=== PATIENT | female | born 1985 | race Caucasian/White ===

== ENCOUNTER 2020-11-15 04:18 | Emergency (ER) | payer SELFPAY ==
[~2020-11-15] VITALS: Ht 162.6 cm; Wt 67.0 kg
[2020-11-15 05:58] LABS: COVID AG,FIA SOURCE NASOPHARYNGEAL
[2020-11-15 06:33] LABS: RAPID GROUP A STREP NEGATIVE (NEGATIVE)
[2020-11-15 06:53] VITALS: BP 118/88
[2020-11-15] MEDS ORDERED: ACETAMINOPHEN 500 MG TABLET PO ONE (07:00)
== END 2020-11-15 07:30 | disposition home or self-care (01) ==
LOC: EMS 04:18
DX: J40 Bronchitis, not specified as acute or chronic (principal); Z20.822 Contact with and (suspected) exposure to COVID-19
CPT/HCPCS: 71045; 87430; 99284